=== PATIENT | female | born 1995 ===

== ENCOUNTER 2024-03-28 04:17 | Day surgery (SDC) | payer OTHER ==
[2024-03-26 13:57] VITALS: BMI 21.9
[2024-03-28] MEDS ORDERED: KETOROLAC TROMETHAMINE 30 MG/1 ML VIAL ONE (11:23)
[2024-03-28] MEDS ORDERED: SUGAMMADEX SODIUM 200 MG/2 ML VIAL ONE (11:23)
[2024-03-28] MEDS ORDERED: LIDOCAINE HCL/PF 2% SDV 5ML VIAL ONE (11:23)
[2024-03-28] MEDS ORDERED: DEXAMETHASONE SOD PHOSPHATE 4 MG/1 ML VIAL ONE (11:23)
[2024-03-28] MEDS ORDERED: ceFAZolin SODIUM 1 GM VIAL ONE (11:23)
[2024-03-28] MEDS ORDERED: ONDANSETRON 4 MG/2 ML VIAL ONE (11:23)
[2024-03-28] MEDS ORDERED: BUPIVACAINE HCL/PF 0.5% (5MG/ML) 10 ML VIAL ONE (11:26)
[2024-03-28] MEDS ORDERED: ROCURONIUM BROMIDE 50 MG/5 ML SYRINGE ONE (11:27)
[2024-03-28] MEDS ORDERED: ACETAMINOPHEN INJECTION 100 ML ONE (11:28)
[2024-03-28] MEDS ORDERED: MIDAZOLAM HCL 2 MG/2 ML SINGLE DOSE VIAL ONE (11:29)
[2024-03-28] MEDS ORDERED: ONDANSETRON 4 MG/2 ML VIAL IVPUSH PRN (11:35)
[2024-03-28] MEDS ORDERED: oxyCODONE HCL 5 MG TABLET PO PRN (11:35)
[2024-03-28] MEDS ORDERED: LACTATED RINGERS SOLUTION 1,000 ML IV SCH (11:45)
[2024-03-28] MEDS: BUPIVACAINE HCL/PF 0.5% (5 MG/ML) 30 ML VIAL IJ ONE ×2 (13:00)
[2024-03-28] MEDS ORDERED: GLYCOPYRROLATE 0.2 MG/1 ML VIAL ONE (13:14)
[2024-03-28 16:07] VITALS: RESP 18
[2024-03-28 17:54] VITALS: BP 102/72; PULSE 60; TEMP 97.8
== END 2024-03-28 17:00 | disposition home or self-care (01) ==
LOC: JASU-SURG 04:17
PROVIDERS: ATTEND Obstetrics & Gynecology Obstetrics
PROC: 0UT74ZZ Resection of Bilateral Fallopian Tubes, Percutaneous Endoscopic Approach (ICD-10-PCS; principal; 2024-03-28 10:30)
DX: Z30.2 Encounter for sterilization (principal)
CPT/HCPCS: 81025; 86850; 86900; 86901; 88305-TC; 94760; J0131